=== PATIENT | female | born 1955 | race Caucasian/White ===

== ENCOUNTER → 2022-08-22 18:43 | Outpatient (CLI) | payer OTHER, SELFPAY ==
--- NOTE | 2022-08-22 | DI.MRI.S_ITS ---
PROCEDURE: MR LUMBAR SPINE WO CON INDICATIONS: RADICULOPATHY OF LUMBAR REGION TECHNIQUE: Noncontrast sagittal T1 spin echo and T2 fast echo, sagittal STIR, and T2 fast spin echo through the lumbar spine. In cases with scoliosis, additional coronal T2 fast spin echo may be performed. COMPARISON: [facility], CR, XR PELVIS WITH BILATERAL LATERAL HIPS, 07/04/2022, 6:41. FINDINGS: Image quality: Excellent. Alignment and Curvature: There is normal bony alignment. There are likely vestigial ribs at L1. Bone Marrow: Marrow is of normal overall signal. No acute vertebral body compression fractures. Spinal Cord: Conus medullaris terminates at the T12 level. Visualized cord demonstrates normal signal and size. Paraspinous Soft Tissues: No paravertebral masses. Perineural cysts are noted on the right at S1 and S2. T12-L1: Normal appearance. L1-L2: Normal appearance. L2-L3: Broad-based disc bulge. Small posterior focal high-intensity zone. Mild facet and ligamentum flavum hypertrophy. No canal stenosis. Mild bilateral foraminal narrowing. L3-L4: Broad-based disc bulge. Moderate facet ligamentum flavum hypertrophy. No canal stenosis. Mild bilateral foraminal narrowing. L4-L5: Mild disc desiccation and height loss. Broad-based disc bulge. Moderate facet ligamentum flavum hypertrophy. No canal stenosis. Mild bilateral foraminal stenosis. L5-S1: Mild disc desiccation and height loss. Broad-based disc bulge. No canal stenosis. There is a right lateral disc bulge which abuts the exiting nerve root and results in severe neural foraminal stenosis. There is moderate left neural foraminal stenosis as well. IMPRESSION: 1. 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 2. Right lateral broad-based disc bulge which abuts the exiting nerve root and results in severe right L5-S1 foraminal stenosis. There is also moderate left foraminal stenosis at L5-S1. 3. No other significant canal stenosis or foraminal narrowing of the lumbar spine. Dictated by: Didi Schuler M.D. on 08/23/2022 at 8:56 Approved by: Didi Schuler M.D. on 08/23/2022 at 9:07
== END ==
PROVIDERS: PCP Family Medicine; Referring Provider Orthopaedic Surgery; Visit Provider Orthopaedic Surgery
DX: M51.17 Intervertebral disc disorders with radiculopathy, lumbosacral region (principal); M48.07 Spinal stenosis, lumbosacral region; M51.16 Intervertebral disc disorders with radiculopathy, lumbar region
CPT/HCPCS: 72148

== ENCOUNTER → 2024-02-12 07:37 | Outpatient (CLI) | payer OTHER, SELFPAY ==
--- NOTE | 2024-02-12 07:38 | DI.NM.S_ITS ---
PROCEDURE: NM EXERCISE TREADMILL NON NUC COMPARISON: None. INDICATIONS: EXERTIONAL SOB/HYPERCHOLESTEROLEMIA FINDINGS: The patient exercised for 9 minutes and 0 seconds reaching 102% of maximum predicted heart rate (10.1 MET, MATTHEW -48%). Appropriate BP response to exercise. The patient had 1/10 chest discomfort at 5 minutes into exercise that worsened to 2/10 at peak exercise. Very mild horizontal ST depressions in the inferior and anterolateral leads during recovery. No ectopy present. IMPRESSION: Abnormal stress ECG test. Very mild horizontal ST depressions in the inferior and anterolateral leads during recovery. No ectopy present. 1/10 chest discomfort at 5 minutes into exercise that worsened to 2/10 at peak exercise. Excellent exercise tolerance (10.1METs, MATTHEW -48%). Dictated by: Chrissy Murray MD on 02/13/2024 at 12:06 Approved by: Chrissy Murray MD on 02/13/2024 at 12:15
== END ==
PROVIDERS: PCP Family Medicine; Referring Provider Internal Medicine Cardiovascular Disease; Visit Provider Internal Medicine Cardiovascular Disease
DX: R94.39 Abnormal result of other cardiovascular function study (principal); R06.02 Shortness of breath; E78.00 Pure hypercholesterolemia, unspecified
CPT/HCPCS: 93017